=== PATIENT | female | born 1965 | race Two or more races ===

== ENCOUNTER 2025-01-29 13:50 | Emergency (ER) | payer MEDICAID, SELFPAY ==
[2025-01-29 13:51] VITALS: BMI 28.1
[2025-01-29 14:04] VITALS: BP 124/77; PULSE 99; RESP 18; TEMP 37.7; O2SAT 98
--- NOTE | 2025-01-29 14:25 | XR_ITS ---
Examination: CT lumbar spine, without contrast. 2-D sagittal reconstructions. 2-D coronal reconstructions. 3-D reconstructions. Date and time of exam:January 29, 2025 1457 hours Comparison January 19, 2023 INDICATIONS: Low back pain radiating down the left leg with fever beginning 3 days ago, lumbar spine surgery 3 days ago CTDI: vol (mGy):28.9 DLP: (mGycm):852 Technique: Multiple 1.25 mm axial sections of the lumbar spine without intravenous contrast have been obtained. 2-D sagittal and coronal reconstructions have been obtained. 3-D reconstructions have been obtained. Low dose protocols were performed. One or more of the following dose reduction techniques were used; automated exposure control, adjustment of the mA and/or KV according to patient size, use of iterative reconstruction technique. Findings: Adequate alignment lumbar vertebral bodies. Prominent osteopenia. No lumbar fracture Transpedicular fusion L4-L5 with disc spacer No jorge luis cortical bone destruction L5-S1 no disc protrusion L4-L5 no disc protrusion L3-L4 no disc protrusion L2-L3 no disc protrusion L1-L2 no disc protrusion IMPRESSION: Transpedicular lumbar fusion L4-L5 with disc spacer, anatomic alignment Negative for osteomyelitis No focal lumbar disc protrusion noted
--- NOTE | 2025-01-29 14:26 | PD.EDBACK ---
ED Back Injury Pain RME/HPI General Chief Complaint: Back Pain/Injury Stated Complaint: BACK PAIN AND FEVER X3 DAYS Time Seen by Provider: 01/29/25 14:18 Source: patient Arrival date/time: 01/29/25 13:50 This is a case of a 59-year-old female with history of chronic low back pain with history of back surgery in 2020 came in in the emergency room due to lower back pain denies any injury in the back, sharp in character 1 denies any numbness weakness nor tingling sensation patient also states that she has a low-grade fever but no urinary symptoms no abdominal pain no cough no nasal congestion no shortness of breath no chest pain no ear pain or throat pain Mode of arrival: ambulatory Limitations: no limitations RME / HPI MD Complaint: back pain Related Data Previous Rx's ?Medication ?Instructions ?Recorded ibuprofen 600 mg tablet 600 mg PO TID PRN pain #30 tabs 01/19/23 baclofen 10 mg tablet 10 mg PO TID PRN muscle spasm #20 01/29/25 tabs nitrofurantoin 100 mg PO BID 10 days #20 caps 01/29/25 monohydrate/macrocrystals 100 mg capsule (Macrobid) tramadol 50 mg tablet 50 mg PO Q6H PRN pain #20 tabs 01/29/25 Allergies Allergy/AdvReac Type Severity Reaction Status Date / Time No Known Allergies Allergy Verified 08/05/23 08:12 Review of Systems Review of Systems Systems Reviewed: All systems reviewed, normal except as documented Constitutional Constitutional: Reports system reviewed and no additional complaints, except as documented, Reports as per HPI, Denies anorexia, Denies body ache(s), Denies chills, Denies difficulty sleeping, Reports fever(s), Denies stops breathing during sleep and Denies weakness ENT Ears, Nose, Mouth, and Throat: Reports system reviewed and no additional complaints, except as documented, Reports as per HPI, Denies abnormal hearing, Denies ear discharge, Denies otalgia, Denies hoarseness, Denies nasal congestion, Denies nasal discharge, Denies nose pain, Denies sinus pressure and Denies sore throat Cardiovascular Cardiovascular: Reports system reviewed and no additional complaints, except as documented and Denies dyspnea Respiratory Respiratory: Reports system reviewed and no additional complaints, except as documented, Reports as per HPI, Denies chest congestion, Denies cough and Denies dyspnea Gastrointestinal Gastrointestinal: Reports system reviewed and no additional complaints, except as documented, Reports as per HPI, Denies abdominal pain, Denies belching, Denies change in bowel habits, Denies change in stool character, Denies coffee ground emesis, Denies constipation, Denies cramping, Denies heartburn, Denies hematemesis, Reports melena, Denies nausea and Denies vomiting Genitourinary Genitourinary: Reports system reviewed and no additional complaints, except as documented and Reports as per HPI Musculoskeletal Musculoskeletal: Reports system reviewed and no additional complaints, except as documented, Reports as per HPI, Denies abnormal gait, Denies arthralgias, Denies atrophy, Reports back pain, Denies deformity, Denies joint swelling and Denies limited range of motion Neurologic Neurologic: Reports system reviewed and no additional complaints, except as documented, Denies abnormal gait, Denies abnormal hearing, Denies abnormal movements, Denies abnormal speech and Denies weakness Past Medical History Past Medical History NEUROLOGIC: Negative Neurological Disorders or Seizures CARDIAC: Positive Cardiac Disorders, Hypercholesterolemia, Edema and Hypertension; Negative Cardiac Arrhythmia, Heart Murmur or Congestive Heart Failure RESPIRATORY: Negative Chronic Obstructive Pulmonary Disease (COPD) GASTROINTESTINAL: Positive Gastrointestinal Disorders and Gall Bladder Disease; Negative Hepatitis GENITOURINARY: Negative Genitourinary Disorders or Renal Disease REPRODUCTIVE: Positive Previous Pregnancies (G4) MUSCULOSKELETAL: Positive Musculoskeletal Disorders, Arthritis and Carpal Tunnel Syndrome ENT: Negative Deafness ENDOCRINE: Positive Endocrine Disorders; Negative Diabetes Mellitus Type 1, Diabetes Mellitus Type 2 or Hypothyroidism HEMATOLOGIC: Negative Blood Disorders or Anemia PSYCHO/SOCIAL: Positive Depression; Negative Anxiety OTHER HISTORY: Negative Hospitalization, Autoimmune Disease, Shingles, Falls, Blood Transfusions, Anesthesia Reactions, Chemotherapy, Radiation Therapy, MRSA, Chicken Pox, Measles or Cancer Family History FAMILY HISTORY: Positive Family Psychiatric Problems, Family Cardiac Disorders, Family Cancer and Family Surgery; Negative Family Respiratory Disorders, Family Gastrointestinal Problems or Family Anesthesia Reaction Surgical History SURGICAL: Positive Ear Surgery (left); Negative Cardiac Surgery, Neurologic Surgery or Tubal Ligation Social History SMOKING STATUS: Never smoker ED Exam General Limitations: Present no limitations General appearance: Present alert and in no apparent distress Head Head exam: Present atraumatic Eye Eye exam: Present normal appearance, PERRL and EOMI ENT ENT exam: Present normal exam, normal oropharynx and mucous membranes moist Neck Neck exam: Present normal inspection, full ROM and trachea midline Chest Chest inspection: Present normal inspection and symmetric chest wall rise Respiratory Respiratory exam: Present normal lung sounds bilaterally; Absent respiratory distress, wheezes, stridor, accessory muscle use or prolonged expiratory phase Cardiovascular Cardiovascular exam: Present regular rate, normal rhythm and normal heart sounds Abdominal Exam Abdominal exam: Present soft and normal bowel sounds; Absent distention, tenderness, guarding, rebound, rigidity, diminished bowel sounds, hyperactive bowel sounds, hypoactive bowel sounds, organomegaly, trauma, incision, psoas sign, obturator sign, heel tap sign, Mixon's sign, Rovsing's sign or tenderness at McBurney's Point External exam: Present normal external exam and erythema Extremities Exam Extremities exam: Present normal inspection and full ROM Back Exam Back exam: Present normal inspection, full ROM and tenderness (l1-l5 mild tenderness no paraspinal tenderness no peravertebral tenderness no cva tenderness staright leg exam normal no crepitation no redness rom intact neurovascular intact) Neurological Exam Neurological exam: Present alert, oriented X3, CN II-XII intact, normal gait and reflexes normal; Absent motor sensory deficit Psychiatric Psychiatric exam: Present normal affect and normal mood Skin Skin exam: Present warm, dry, intact and normal color Course Quality Measures VTE prophylaxis and none Orders Category Date Time Status CT lumbar spine wo con Stat Exams 01/29/25 14:25 Completed Urinalysis Stat Lab 01/29/25 15:35 Completed Dexamethasone Inj [Decadron Inj] Med 01/29/25 16:14 Discontinued 10 mg IM X1 ONE Ketorolac Inj [Toradol Inj] Med 01/29/25 16:14 Discontinued 30 mg IM X1 ONE Vital Signs Vital signs: Vital Signs Temperature 99.9 F 01/29/25 14:04 Pulse Rate 99 01/29/25 14:04 Respiratory Rate 18 01/29/25 14:04 Blood Pressure 124/77 01/29/25 14:04 Pulse Oximetry (%) 98 01/29/25 14:04 Oxygen Delivery Method Room Air 01/29/25 14:04 Oxygen saturation 98% in normal Back Pain / Injury MDM Narrative MDM Narrative:: This is a case of a 59-year-old female with history of chronic low back pain with history of back surgery in 2020 came in in the emergency room due to lower back pain denies any injury in the back, sharp in character 1 denies any numbness weakness nor tingling sensation patient also states that she has a low-grade fever but no urinary symptoms no abdominal pain no cough no nasal congestion no shortness of breath no chest pain no ear pain or throat pain Physical exam showed l1-l5 mild tenderness no paraspinal tenderness no peravertebral tenderness no cva tenderness staright leg exam normal no crepitation no redness rom intact neurovascular intact no signs and symptoms of cauda equina HEENT exam is benign mild negative for meningeal sign patient is afebrile diagnosable vital signs is normal no signs and symptoms of sepsis or dehydration abdominal exam is benign nonsurgical no guarding no rebound no tenderness Test as follow urinalysis. UA shows WBC and RBC positive negative nitrites CT scan of the lumbar is normal Based on my physical exam and history patient symptoms suggestive of chronic lower back pain muscle spasm urinary tract infection and will be treated with Moreno arrival and dexamethasone patient was reassessed after 30 minutes patient pain was resolved patient was prescribed with tramadol and baclofen she was advised not to take the medication. The symptoms noted female: Pushing water) of back brace ice and warm compress as needed patient was also discharged with Macrobid for urinary tract infection patient was advised to follow-up with PCP to see neurosurgeon for chronic low back pain and pain management doctor for pain control she was advised to return to the emergency room immediately if there is numbness weakness tingling sensation incontinence to urine or tatyana Patient was discharged with comfortable condition walking with stable gait. Patient verbalized no further complains explained diagnosis and answered patient question. Patient is comfrtable with the proposed management plan including the need to follow up with his/her primary care physician and any specialist if applicable Discussed patient for any urgent condition or worsening sx, He/She needed to go to emergncy room immediately or call 911. Patient acknowledge the responsibility to follow up as instructed and to monitor her/his symptoms. For any persistnce of the symtoms for more than 3-5 days reurn precaution advsied. Discussed the result of the test and was given printed discharge instruction Patient data External records reviewed:: [facility] previous records Clinical information provided by:: patient and family Social determinants that could affect healthcare access:: none Patient has the following chronic illnesses:: none How is presenting disease/condition affected by chronic disease/condition?: no chronic disease Evaluation data The following diagnostics were reviewed and interpreted by me:: lab results and radiology exam(s) Lab and/or radiology exams considered but not ordered:: Reviewed Interpretation Summary: Reviewed Medications / Prescriptions Medications or Prescriptions considered but not ordered:: Given Medication administrations:: Medication Administration History Discontinued Medications Dexamethasone Sodium Phosphate (Dexamethasone Sod Phos Inj 10 Mg/Ml Vial) 10 mg IM X1 ONE Stop: 01/29/25 16:15 Ketorolac Tromethamine (Ketorolac Inj 60 Mg/2 Ml Vial) 30 mg IM X1 ONE Stop: 01/29/25 16:15 given Consultations Consultation(s) initiated? (list below): No Diagnosis Differential diagnosis back pain/injury: lumbar radiculopathy, sciatica, strain of lumbar region and pyelonephritis Most likely diagnosis given after review of the tests above:: Urinary bladder infection chronic low back pain Admission Indicated Admission indicated?: not indicated Explain why admission is indicated or not indicated:: Not indicated Admission Request Was there a request for admission?: No Admission Attestation Admission request attestation: Not indicated Disposition Plan Disposition Plan: Discharge Discharge Attestation Discharge Attestation: The patient and all family members were given an opportunity to ask questions and understood the discharge instructions. Discharge instructions specifically effects, indications for sooner follow up or return to the emergency department, and the expected course of current diagnosis. Patient condition: Stable Discharge Plan Plan Patient Disposition: HOME (Self Care) Patient condition on transfer: Stable Prescriptions/Referrals Prescriptions/Med Rec: New tramadol 50 mg tablet 50 mg PO Q6H PRN (Reason: pain) Qty: 20 0RF baclofen 10 mg tablet 10 mg PO TID PRN (Reason: muscle spasm) Qty: 20 0RF Rx Instructions: do not take with tramadol nitrofurantoin monohyd/m-cryst [Macrobid] 100 mg capsule 100 mg PO BID 10 Days Qty: 20 0RF Rx Instructions: must administer with a meal/food No Action ibuprofen 600 mg tablet 600 mg PO TID PRN (Reason: pain) Qty: 30 0RF Referrals: Nereyda Cruz PA-C [Primary Care Provider] - In 1 week Problem List Clinical Impression: Chronic back pain, Muscle spasm, Urinary tract infection Patient/Caregiver Discharge Instructions Education Materials: Understanding Urinary Tract ..., ED Back Care Tips, ED Back Pain (Acute or Chronic), ED Muscle Spasm Additional Instructions: incraese water intake use back brace ice pacn and warm compress as needed for pain it is important to see your pcp to be referredto neurosurgeon for chronic back pain and pain management for pain control Print Language: Maori Stand Alone Forms: Meka Award Info., Patient Portal Info Letter PA/SENIOR USER EXPERIENCE ARCHITECT Supervising Physician PA/SENIOR USER EXPERIENCE ARCHITECT Supervising Physician: dr maradiaga
[2025-01-29 15:46] LABS: Collection Type, Urine Voided
[2025-01-29 15:57] LABS: Bilirubin,Urine Negative (Negative); Blood,Urine 2+ (Negative); Clarity,Urine Clear (Clear/Hazy); Color,Urine Yellow (Lt Yel-Yel); Glucose, Urine Negative (Negative); Ketones,Urine 1+ (Negative); Leukocyte Esterase,Urine Negative (Negative); Nitrite,Urine Negative (Negative); Protein,Urine Trace (Neg - Trace); RBC,Urine 18 /hpf (0-3); Specific Gravity,Urine 1.028 (1.001-1.035); Squamous Epithelial Cell,Urine 2 /hpf (0-5); Urobilinogen,Urine Negative mg/dL (0.0-1.0); WBC,Urine 3 /hpf (0-5)
[2025-01-29] MEDS: KETOROLAC INJ 60 MG/2 ML VIAL 30 MG IM (16:25)
[2025-01-29] MEDS: DEXAMETHASONE SOD PHOS INJ 10 MG/ML VIAL IM (16:25)
== END 2025-01-29 16:34 | disposition home or self-care (01) ==
PROVIDERS: Nurse Practitioner Family; Emergency Provider Family Medicine; PCP Physician Assistant
DX: G89.29 Other chronic pain (principal); M62.838 Other muscle spasm; M54.50 Low back pain, unspecified; N39.0 Urinary tract infection, site not specified
CPT/HCPCS: 72131; 81001; 96372; 99284; J1100; J1885

== ENCOUNTER → 2025-03-07 | Outpatient (CLI) | payer MEDICAID, SELFPAY ==
--- NOTE | 2025-03-07 14:03 | XR_ITS ---
Examination: Lumbar spine, 5 views Technique: Lumbar spine AP, lateral, coned lateral lower lumbar spine, bilateral obliques 5 views Exam date and time: March 07, 2025 1410 hours INDICATIONS: Status post lumbar surgery 4 months ago, low back pain radiating to both hips FINDINGS: Adequate alignment lumbar vertebral bodies Moderate osteopenia Transpedicular lumbar stabilization L4-L5 with anatomic alignment Disc spacer Moderate disc narrowing L5-S1 No spondylolisthesis IMPRESSION: Moderate disc narrowing L5-S1
== END | disposition home or self-care (01) ==
LOC: CDIM 13:46
PROVIDERS: PCP Physician Assistant; Referring Provider Physician Assistant; Visit Provider Physician Assistant
DX: M51.370 Other intervertebral disc degeneration, lumbosacral region with discogenic back pain only (principal)
CPT/HCPCS: 72110

== ENCOUNTER → 2025-06-09 | Outpatient (CLI) | payer MEDICAID, SELFPAY ==
--- NOTE | 2025-06-09 09:53 | XR_ITS ---
Examination: Retroperitoneal ultrasound, complete Technique: Multiple high resolution grayscale images of the retroperitoneum obtained, including kidneys and bladder. Exam date and time:June 09, 2025, 1002 hours INDICATIONS: Recurrent urinary tract infections 30 years, bladder incontinence 15 years, hematuria laboratory examination this month FINDINGS: Right kidney 9.0 cm cortex 1.0 cm Left kidney 9.6 cm cortex 1.9 cm Minimal bilateral hydronephrosis Mild to moderate bilateral renal parenchymal scar formation No bladder mass or bladder calculi Bladder prevoid volume 444 cc postvoid volume 203cc IMPRESSION: Minimal bilateral hydronephrosis, consider urinary tract infection Mild to moderate bilateral renal parenchymal scar formation
== END | disposition home or self-care (01) ==
PROVIDERS: PCP Physician Assistant; Referring Provider Physician Assistant; Visit Provider Physician Assistant
DX: N13.30 Unspecified hydronephrosis (principal); N28.89 Other specified disorders of kidney and ureter
CPT/HCPCS: 76770